=== PATIENT | male | born 1950 | race Caucasian/White ===

== ENCOUNTER → 2016-12-12 | Outpatient (CLI) | payer MEDICARE, OTHER ==
--- NOTE | 2016-12-12 11:38 | RAD ---
APPROVED REPORT Test Type: Exercise Stress Nurse/Tech: KANA Carrizales ARRT (Jefe) (N), STEPH Ibarra Test Indications: elevated calcium score Cardiac History: See Electronic Medical Record Medications: See Electronic Medical Record Medical History: See Electronic Medical Record Resting ECG: SR Resting Heart Rate: 68 bpm Resting Blood Pressure: 141/81mmHg Pretest Chest Pain: None Nurse/Tech Notes SR Consent: The procedure was explained to the patient in lay terms. Informed consent was witnessed. Corona eout was entered into [employer]. History and Stress Test performed by KANA Carrizlaes ARRT (Jefe) (N) Stress Symptoms Fatigue POST EXERCISE Reason for Termination: Reached target heart rate, Fatigue Target HR: 130 Max HR: 160 bpm % of Maximum Predicted HR: 130 bpm Exercise duration: 9:16 min:sec, 4 Stage Exercise capacity: 13.4METs Max Blood Pressure: 157/89mmHg Blood Pressure response to exercise: Normal blood pressure response during stress. Chest Pain: No. Arrhythmia: No. ST Change: No. INTERPRETATION Stress EKG Conclusion: No evidence of ischemia. Imaging Protocol IMAGE PROTOCOL: Rest Tc-99m/stress Tc-99m 1 day Rest: Stress: Viability: Radiopharm.Tc99m [id number] Sestamibi [id number] 34mCi Img Date 12/12/2016 12/12/2016 Inj-Img [id number]. 45min. Rest Admin Site:IV - Right AntecubitalAdministrator: KANA Carrizales ARRT (Jefe)(N) Stress Admin Site: IV - Right AntecubitalAdministrator: KANA Carrizales ARRT (Jefe)(N) STRESS DATA End Diast. Vol.87.0mlAv. Heart Rate98.0bpm LVEDV index BSA2.0mlCardiac Output0.1L/min End Syst. Vol.18.0mlCO Index BSA6.7L/min LVESV index BSA0.0mlMyocardial Ftfb130.0g Eject. Siexrymc96.0% Stress Rates Pk. Fill Rate4.17EDV/secLVtime Pk. Fill 130.04msec Pk. Empty Rate4.11ESV/secLVtime Pk. Eject73.30msec 1/3 Pk. Fill1.46EDV/sec Stress Scores Regional WT0.00Summed WT0.00 Regional WM0.00Summed WM0.00 The rest and stress images show normal perfusion, normal contraction and thickening. LV Perf. Quant 17 Seg. SSS0.00 17 Seg. SRS0.00 17 Seg. SDS0.00 Stress Defect Extent (% LAD)0.00Rest Defect Extent (% LAD)0.00Rev. Defect Extent (% LAD)0.00 Stress Defect Extent (% LCX) 0.00Rest Defect Extent (% LCX)0.00Rev. Defect Extent (% LCX)0.00 Stress Defect Extent (% RCA)0.00Rest Defect Extent (% RCA)0.00Rev. Defect Extent (% RCA)0.00 Stress Defect Extent (% LUIS ENRIQUE)0.00Rest Defect Extent (% LUIS ENRIQUE)0.00Rev. Defect Extent (% ULIS ENRIQUE)0.00 Other Information Quality:Fair Risk Assessment: Low Risk Conclusion 1. No evidence of stress induced EKG changes. 2. Above average exercise capacity with 13.4 Mets 3. Normal perfusion at stress/rest. 4. Low risk study.
== END | disposition home or self-care (01) ==
LOC: NM 07:26
PROVIDERS: ATTEND Internal Medicine Cardiovascular Disease
DX: I25.10 Atherosclerotic heart disease of native coronary artery without angina pectoris (principal); I10 Essential (primary) hypertension; E78.00 Pure hypercholesterolemia, unspecified
CPT/HCPCS: 78452; 93017; 96374; 96376; A9500

== ENCOUNTER → 2017-12-20 | Outpatient (CLI) | payer MEDICARE, OTHER ==
--- NOTE | 2017-12-20 14:47 | RAD ---
EXAM: 3 views right shoulder 3 views right elbow 2 views right forearm DATE: 12/20/2017 12:00 AM INDICATION: PAIN S/P FALL LAST WED COMPARISON: No Prior FINDINGS: Right shoulder: No evidence of acute fracture or dislocation. AC joint degenerative changes are seen with small associated osteophytes. Humeral head is not high riding. Right elbow and right forearm: No elbow joint effusion. No evidence of acute fracture or dislocation. Olecranon enthesopathy. No significant soft tissue swelling. Chondrocalcinosis TFCC. IMPRESSION: 1. No evidence of acute fracture or dislocation. 2. Olecranon enthesopathy 3. TFCC chondrocalcinosis 4. AC joint degenerative change Electronically signed by: Del Ybarra MD (12/20/2017 2:44 PM) [id number]
== END | disposition home or self-care (01) ==
LOC: DXRAD 10:58
PROVIDERS: ATTEND Nurse Practitioner Family
DX: M25.711 Osteophyte, right shoulder (principal); M11.221 Other chondrocalcinosis, right elbow; M77.8 Other enthesopathies, not elsewhere classified; I10 Essential (primary) hypertension; E78.00 Pure hypercholesterolemia, unspecified; I25.10 Atherosclerotic heart disease of native coronary artery without angina pectoris
CPT/HCPCS: 73030; 73080; 73090

== ENCOUNTER → 2019-05-22 | Outpatient (CLI) | payer MEDICARE, OTHER ==
--- NOTE | 2019-05-22 16:30 | RAD ---
HAND LEFT 3V 05/22/2019 12:00 AM INDICATION: Hand pain, worse around the thumb COMPARISON: None available. TECHNIQUE: 3 views of the left hand are provided. FINDINGS/ IMPRESSION: There is no acute fracture or dislocation. Joint spaces are maintained. Bone mineralization is within normal limits. Regional soft tissues are within normal limits. There is no soft tissue gas or osseous erosion. No radiopaque foreign body. There may be minimal mineralization along the radial margin of the metacarpophalangeal joint of the first digit . This is atypical, however could be seen with CPPD deposition. Electronically signed by: Stacia Whittaker MD (05/22/2019 4:27 PM) [id number]
== END | disposition home or self-care (01) ==
LOC: DXRAD 12:08
PROVIDERS: ATTEND Nurse Practitioner Family
DX: M79.645 Pain in left finger(s) (principal)
CPT/HCPCS: 73130

== ENCOUNTER → 2019-07-09 | Outpatient (CLI) | payer MEDICARE, OTHER ==
--- NOTE | 2019-07-09 15:15 | RAD ---
5 views of the cervical spine without comparison for neck pain. FINDINGS: There is straightening of normal cervical lordosis. No alignment abnormality is seen. Intervertebral disc spaces are well-maintained. The atlantoaxial articulation is intact. Prevertebral soft tissues are grossly unremarkable. There is mild narrowing of the bony neural foramen at C3-4 on the left as well as at C3-4, C4-5, and C5-6 on the right. IMPRESSION: 1. No acute osseous or alignment abnormality. 2. Straightening of the normal cervical lordosis with mild bony neuroforaminal narrowing bilaterally as described. Electronically signed by: Roger Olguin MD (07/09/2019 3:12 PM) [id number]
== END ==
LOC: DXRAD 10:13
PROVIDERS: ATTEND Nurse Practitioner Family
DX: M48.02 Spinal stenosis, cervical region (principal)
CPT/HCPCS: 72050

== ENCOUNTER → 2020-03-14 | Outpatient (CLI) | payer MEDICARE, OTHER ==
--- NOTE | 2020-03-14 15:50 | RAD ---
EXAMINATION: ABDOMEN LTD 03/14/2020 11:00 AM INDICATION: Elevated LFTs TECHNIQUE: Aldridge scale and color Doppler ultrasound of the right upper quadrant was obtained. COMPARISON: None. FINDINGS: Liver: The liver is normal in size measuring 14 cm in length. There is diffusely increased hepatic echogenicity and poor through transmission. No focal liver lesion. The main portal vein is patent with antegrade flow. Gallbladder: The gallbladder is normal in caliber. No cholelithiasis or sludge. The gallbladder wall is normal in thickness measuring 1 mm. Sonographic Trevino's sign is negative. Bile ducts: The common bile duct is normal measuring 4 mm. No intrahepatic biliary duct dilatation. Right kidney: The right kidney measures 11.4 x 5.4 x 5.5 cm. Normal cortical thickness and echogenicity. No hydronephrosis. Other: The pancreas is unremarkable where visualized. No ascites. IMPRESSION: Hepatic steatosis. Electronically signed by: Lucille Magana MD (03/14/2020 3:47 PM) [id number]
== END ==
LOC: US 10:39
PROVIDERS: ATTEND Internal Medicine Gastroenterology
DX: K76.0 Fatty (change of) liver, not elsewhere classified (principal)
CPT/HCPCS: 76705